=== PATIENT | male | born 1995 | race African-American/Black ===

== ENCOUNTER 2022-03-30 23:37 | Emergency (ER) | payer MEDICAID | END 2022-03-31 00:45 | disposition left against medical advice (07) | LOC: ERS 23:37 | DX: Z53.21 Procedure and treatment not carried out due to patient leaving prior to being seen by health care provider (principal) ==

== ENCOUNTER 2022-06-10 09:06 | Emergency (ER) | payer MEDICAID, SELFPAY ==
[2022-06-10] MEDS ORDERED: cefTRIAXone\\ROCEPHIN 500 MG VIAL ONE (09:36)
[2022-06-10] MEDS ORDERED: Lidocaine 1% MPF 2 ML VIAL ONE (09:36)
[2022-06-10 09:40] LABS: Bilirubin Negative (Negative); Blood, Urine Negative (Negative); Glucose, Urine (Dipstick) Normal (Negative); Ketone, Urine Negative (Negative); Leukocyte 75 Leu/uL (Negative); Nitrite Negative (Negative); Protein, Urine (Dipstick) 20 mg/dL (Neg-Trace); RBC/HPF 0-3 HPF (0-3); Specific Gravity, Urine 1.025 (1.002-1.036); Squamous Epithelial 0-3 HPF (0-3); pH, Urine 6.5 (5.0-9.0)
[2022-06-10 09:42] LABS: Bacteria/HPF 1+ HPF (None Seen); Clarity Cloudy (Clear)
[2022-06-10 16:22] LABS: Chlam.trachomatis by PCR,Urine Not Detected (NotDetected); GC N.gonorrhoeae PCR,UrineVOID Not Detected (NotDetected)
== END 2022-06-10 10:02 | disposition home or self-care (01) ==
LOC: ERS 09:06
DX: N34.1 Nonspecific urethritis (principal); F17.200 Nicotine dependence, unspecified, uncomplicated
CPT/HCPCS: 81003; 81015; 87491; 87591; 96372; 99283; J0696

== ENCOUNTER 2022-06-19 10:04 | Emergency (ER) | payer SELFPAY | END 2022-06-19 11:22 | disposition home or self-care (01) | LOC: ERS 10:04 | DX: S83.92XA Sprain of unspecified site of left knee, initial encounter (principal); F17.200 Nicotine dependence, unspecified, uncomplicated ==

== ENCOUNTER 2023-04-30 00:57 | Emergency (ER) | payer SELFPAY ==
[2023-04-30] MEDS ORDERED: Ibuprofen 200 MG TAB ONE (01:55)
[2023-04-30] MEDS ORDERED: Ondansetron ODT 4 MG TAB ONE (01:56)
[2023-04-30 02:29] LABS: SARS-CoV-2 NAA Rapid Test Not Detected (NotDetected)
== END 2023-04-30 03:01 | disposition home or self-care (01) ==
LOC: ERS 00:57
DX: B34.9 Viral infection, unspecified (principal)
CPT/HCPCS: 99283; Q0162

== ENCOUNTER 2023-07-11 03:06 | Emergency (ER) | payer SELFPAY | END 2023-07-11 03:46 | LOC: ERS 03:06 | DX: S00.83XA Contusion of other part of head, initial encounter (principal); W01.10XA Fall on same level from slipping, tripping and stumbling with subsequent striking against unspecified object, initial encounter | CPT/HCPCS: 99282 ==